=== PATIENT | female | born 1955 | race Caucasian/White ===

== ENCOUNTER 2019-06-13 16:43 | Outpatient (CLI) | payer OTHER ==
--- NOTE | 2019-06-13 17:12 | RAD ---
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 COMPARISON: None FINDINGS: Cardiac silhouette and pulmonary vasculature are within normal limits. Calcified granulomata are see n in the region of the lingula related to prior granulomatous disease. The lungs otherwise appear clear. No consolidation or pleural fluid is seen. The osseous structures have a normal appearance. IMPRESSION: 1. No acute cardiopulmonary process. 2. Evidence of prior granulomatous disease..
== END 2019-06-13 16:44 | disposition home or self-care (01) ==
LOC: SCSRAD 16:43
PROVIDERS: ATTEND Internal Medicine
DX: R76.11 Nonspecific reaction to tuberculin skin test without active tuberculosis (principal); D71 Functional disorders of polymorphonuclear neutrophils
CPT/HCPCS: 71046